=== PATIENT | male | born 1985 | race Caucasian/White ===

== ENCOUNTER 2020-10-21 09:36 | Outpatient (CLI) | payer BC, SELFPAY ==
--- NOTE | ~2020-10-21 | US_ITS ---
EXAMINATION: US breast LT limited HISTORY: Cellulitis of the chest wall with a cyst of the left breast TECHNIQUE: Limited left breast ultrasound performed FINDINGS: There is a 2.3 x 0.8 cm hypoechoic mass with a thick surrounding rind of tissue in the skin of the left breast at the 10:00 location near the nipple corresponding to the palpable abnormality o f concern. IMPRESSION: Imaging findings most consistent with a skin infection/possible small abscess. Recommend trial of ant ibiotics and consider ultrasound guided aspiration if finding does not resolve. BI-RADS Category 2: Benign finding(s). Reviewed, dictated and finalized at location A. IMPRESSION: Imaging findings most consistent with a skin infection/possible small abscess. Recommend trial of antibiotics and consider ultrasound guided aspiration if fin ding does not resolve. BI-RADS Category 2: Benign finding(s).
== END 2020-10-21 09:37 | disposition home or self-care (01) ==
LOC: ANHIMG 09:38
PROVIDERS: PCP Physician Assistant; Visit Provider Physician Assistant
DX: N60.02 Solitary cyst of left breast (principal); N63.22 Unspecified lump in the left breast, upper inner quadrant; L03.313 Cellulitis of chest wall
CPT/HCPCS: 76642